=== PATIENT | male | born 1960 | race Caucasian/White ===

== ENCOUNTER 2021-03-28 14:18 | Outpatient (CLI) | payer OTHER, SELFPAY ==
--- NOTE | 2021-03-28 14:29 | XR_ITS ---
WS: [id number] Lumbar spine, AP view, L5-S1 spot, both obliques, lateral with flexion, extension and neutral positio n, 03/28/2021 Clinical Data: S32.010A - Wedge compression fracture of first lumbar kimmie... Comparison: Lumbar spine, 07/22/2019. Findings: No new compression fractures or subluxation is seen. There is a stable compression fracture of L1 wit h loss of 50% of anterior and central vertebral body height. No disc space narrowing is seen. There i s anterior osteoarthritic spurring from L1 through L5. The transverse processes and SI joints are nor mal. The oblique films show no spondylolysis. Flexion and extension there is no subluxation or limitation of motion. The L1 compression fracture appears stable. XR/XR lumbar spine 6V w f/e [id number] Impression: 1. Stable compression fracture of L1. 2. 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 3. Negative for spondylolysis. 4. There is no subluxation, limitation of motion or instability of the L1 compr ession fracture on flexion or extension.
== END 2021-03-28 14:19 | disposition home or self-care (01) ==
PROVIDERS: PCP Nurse Practitioner Family; Visit Provider Nurse Practitioner Family
DX: S32.010A Wedge compression fracture of first lumbar vertebra, initial encounter for closed fracture (principal); X58.XXXA Exposure to other specified factors, initial encounter; M54.9 Dorsalgia, unspecified; M47.816 Spondylosis without myelopathy or radiculopathy, lumbar region
CPT/HCPCS: 72114

== ENCOUNTER 2022-01-01 13:24 | Outpatient (CLI) | payer OTHER, SELFPAY ==
--- NOTE | 2022-01-01 13:30 | MR_ITS ---
WS: [id number] MRI BRAIN WITH HIGH-RESOLUTION IMAGING THROUGH THE INTERNAL AUDITORY CANALS WITHOUT AND WITH CONTRAST HISTORY: SENSORINEURAL HEARING LOSS, BILATERAL COMPARISON: None available. TECHNIQUE: Multiplanar, multisequence imaging is performed through the brain. Additional 3 mm imaging performed in multiple planes through the internal auditory canal. Postcontrast imaging with 20 ml's of MultiHance. No acute intracranial hemorrhage, midline shift, edema or mass effect. No acute infarct. No significant white matter disease or prior infarct. No inferior displacement of c erebellar tonsils. Ventricles and extra-axial spaces are normal. No inferior displacement of cerebellar tonsils. Clivus and pituitary gland are normal. Internal and external auditory canals: Unremarkable. Cranial nerves VII and VIII complexes: Unremarkable. No enhancement or mass. Cerebellopontine angles: Normal. Paranasal sinuses: Mild mucoperiosteal thickening in the maxillary sinuses. No air-fluid levels. Mastoid air cells: Normal. Calvarium and scalp: Normal. Visualized [place] and dural venous sinuses demonstrate no abnormality. MR/MR iac's wo/w con* [id number] IMPRESSION: 1. No intracranial mass. 2. Normal appearance of the internal auditory canals. 3. No prior infarct or acute infarct.
[2022-01-01] MEDS: gadobenate dimeglumine 20 mL vial IV (14:28)
== END 2022-01-01 13:25 | disposition home or self-care (01) ==
PROVIDERS: PCP Nurse Practitioner Family; Visit Provider Specialist
DX: H90.3 Sensorineural hearing loss, bilateral (principal)
CPT/HCPCS: 70553

== ENCOUNTER → 2022-12-10 08:22 | Outpatient (BNVA) | payer BC, SELFPAY | PROVIDERS: PCP Nurse Practitioner Family; Visit Provider Dermatology | DX: Z13.6 Encounter for screening for cardiovascular disorders (principal) ==

== ENCOUNTER → 2023-09-09 08:31 | Outpatient (BNVA) | payer SELFPAY | PROVIDERS: PCP Nurse Practitioner Family; Visit Provider Nurse Practitioner Family | DX: Z13.6 Encounter for screening for cardiovascular disorders (principal) ==

== ENCOUNTER → 2023-09-18 14:23 | Outpatient (BNVA) | payer BC, SELFPAY | PROVIDERS: PCP Nurse Practitioner Family; Visit Provider Nurse Practitioner Family | DX: Z02.89 Encounter for other administrative examinations (principal) | CPT/HCPCS: 81003 ==

== ENCOUNTER → 2024-06-07 10:30 | Outpatient (BNVA) | payer BC, SELFPAY | PROVIDERS: PCP Nurse Practitioner Family; Visit Provider Nurse Practitioner Family | DX: M75.42 Impingement syndrome of left shoulder (principal); M24.112 Other articular cartilage disorders, left shoulder; M12.812 Other specific arthropathies, not elsewhere classified, left shoulder | CPT/HCPCS: 73030 ==